=== PATIENT | female | born 1980 | race Caucasian/White ===

== ENCOUNTER 2023-03-23 05:11 | Emergency (ER) | payer OTHER ==
[~2023-03-23] VITALS: Ht 160 cm; Wt 61.2 kg
[2023-03-23] MEDS ORDERED: PROZAC40 MG PO (05:28)
[2023-03-23 06:58] LABS: BILIRUBIN, URINE NEGATIVE (negative); BLOOD/HGB, URINE LARGE (Negative); KETONE, URINE >=80 (Negative); LEUK ESTERASE, URINE SMALL (negative); NITRITE, URINE NEGATIVE (negative); PH, URINE 5.5 (5-7)
[2023-03-23 07:08] LABS: BACTERIA, URINE NONE SEEN /hpf (negative); CASTS, URINE NONE SEEN \\lpf; COLLECTION TYPE, URINE CLEAN CATCH; CRYSTALS, URINE NONE SEEN (0-1+); EPITHELIAL CELLS, URINE SQUAMOUS 1+ /lpf (0-1+); REFLEX CULTURE, URINE Yes (No)
[2023-03-23 07:12] LABS: AMPHETAMINES, URINE POSITIVE (NEGATIVE); BARBITURATES, URINE NEGATIVE (NEGATIVE); BENZODIAZEPINE, URINE NEGATIVE (NEGATIVE); BUPRENORPHINE, URINE NEGATIVE (NEGATIVE); CANNABINOID, URINE POSITIVE (NEGATIVE); COCAINE, URINE NEGATIVE (NEGATIVE); ECSTASY, URINE NEGATIVE (NEGATIVE); FENTANYL, URINE NEGATIVE (NEGATIVE); METHADONE, URINE NEGATIVE (NEGATIVE); OPIATES, URINE NEGATIVE (NEGATIVE); OXYCODONE, URINE NEGATIVE (NEGATIVE); PHENCYCLIDINE, URINE NEGATIVE (NEGATIVE)
[2023-03-23 07:41] LABS: HEMATOCRIT 36.3 % (35.0-50.0); HEMOGLOBIN 12.1 g/dL (12.0-18.0); MCH 30.4 (27-36); MCHC 33.3 g/dl (30-36); MCV 91.5 fl (81-99); PLATELET COUNT 230 K/uL (140-440); RBC 3.96 M/ul (4.3-5.7)
[2023-03-23 08:07] LABS: LYMPHOCYTES, MANUAL DIFF 7; MONOCYTES, MANUAL DIFF 8; NEUTROPHILS, MANUAL DIFF 85
[2023-03-23 08:12] LABS: ACETAMINOPHEN 1 ug/mL (10-30); ALBUMIN 3.4 g/dL (3.4-5.0); ALBUMIN/GLOBULIN RATIO 0.89 (1.1-2.4); ALCOHOL, MEDICAL <3 ng/dL (<3); ALKALINE PHOSPHATASE 63 U/L (46-116); ALT (SGPT) 32 U/L (14-59); ANION GAP 18.9 (7-21); AST (SGOT) 22 U/L (15-37); BILIRUBIN, TOTAL 0.7 ng/dL (0.2-1.0); BUN/CREATININE RATIO 18.18 (6.0-28.6); CALCIUM 8.5 mg/dL (8.5-10.1); CARBON DIOXIDE 27 mmol/L (21-32); CHLORIDE 96 mmol/L (98-107); CREATININE, SERUM 0.77 mg/dL (0.55-1.02); GLOMERULAR FILTRATION RATE,EST 98 mL/min (>60); POTASSIUM 2.9 mmol/L (3.5-5.1); PROTEIN, TOTAL 7.2 g/dL (6.4-8.2); TSH, 3RD GENERATION 0.689 uIU/mL (0.358-3.740); UREA NITROGEN 14 mg/dL (7-18)
[2023-03-24 08:09] LABS: BASOPHILS 0.4 % (0-2); HEMATOCRIT 34.6 % (35.0-50.0); HEMOGLOBIN 11.5 g/dL (12.0-18.0); MCH 30.4 (27-36); MCHC 33.4 g/dl (30-36); MCV 91.2 fl (81-99); MONOCYTES 9.5 % (0-12); NEUTROPHILS 77.1 % (39-80); PLATELET COUNT 242 K/uL (140-440); RBC 3.79 M/ul (4.3-5.7)
[2023-03-24 08:26] LABS: ALBUMIN 2.8 g/dL (3.4-5.0); ALBUMIN/GLOBULIN RATIO 0.72 (1.1-2.4); ANION GAP 13.4 (7-21); BILIRUBIN, TOTAL 0.4 ng/dL (0.2-1.0); BUN/CREATININE RATIO 16.9 (6.0-28.6); CALCIUM 8.5 mg/dL (8.5-10.1); CREATININE, SERUM 0.71 mg/dL (0.55-1.02); POTASSIUM 3.4 mmol/L (3.5-5.1); PROTEIN, TOTAL 6.7 g/dL (6.4-8.2)
[2023-03-25 14:30] VITALS: BP 114/84
[2023-03-25] MEDS ORDERED: CEFDINIR300 MG PO (17:09)
== END 2023-03-25 14:30 | disposition home or self-care (01) ==
LOC: ED 05:11
PROVIDERS: Emergency Medicine
DX: F41.9 Anxiety disorder, unspecified (principal); F32.A Depression, unspecified; F15.10 Other stimulant abuse, uncomplicated; N39.0 Urinary tract infection, site not specified; E87.6 Hypokalemia; D72.829 Elevated white blood cell count, unspecified; S72.121A Displaced fracture of lesser trochanter of right femur, initial encounter for closed fracture; Z88.0 Allergy status to penicillin; Z79.899 Other long term (current) drug therapy; W19.XXXA Unspecified fall, initial encounter
CPT/HCPCS: 36415; 73502; 80053; 80307; 81001; 84443; 84703; 85025; A9270; G0480; J1885

== ENCOUNTER 2024-12-31 03:33 | Emergency (ER) | payer OTHER ==
[~2024-12-31] VITALS: Ht 160 cm; Wt 65.0 kg
[~2024-12-31 03:33] MED LIST: CEFDINIR300 MG PO; PROZAC40 MG PO
--- OUTSIDE RECORDS SUMMARY | 2024-12-31 03:40 | XMS ---
PreManage Notification: KYRA ESCALANTE Security Gsa Coordinator Events No recent Security Events currently on file CRITERIA MET - 6 ED Visits in 6 Months CARE PROVIDERS -, [facility] Dentist: Testing Coordinator Current [employer] PHONE: [phone] [place], [facility]/Center: [facility] ([facility]) PHONE: [phone] CLAUDE SALINAS Nurse Practitioner Current PHONE: Unknown [place] has no Care Guidelines for this patient. E.D. VISIT COUNT (12 MO.) [facility] MELI Diaz [facility] [place] TOTAL 7 NOTE: Visits indicate total known visits. ED/UCC VISIT TRACKING (12 MO.) 12/31/2024 03:34 [place]I [place] TYPE: Emergency COMPLAINT: - SKIN PROBLEM 10/23/2024 02:20 [facility] Ricarda Francisa) TYPE: Emergency DIAGNOSES: - Other symptoms and signs involving cognitive functions and awareness - Altered Mental Status - ams 09/29/2024 06:12 [facility] [place] (Adriana Wright) TYPE: Emergency DIAGNOSES: - Disorder of the skin and subcutaneous tissue, unspecified - Local infection of the skin and subcutaneous tissue, unspecified - Other specified bacterial agents as the cause of diseases classified elsewhere - med check, poss wound check - Rash 09/18/2024 17:55 [facility] [place] (Adriana Wright) TYPE: Emergency DIAGNOSES: - Impetigo, unspecified - Allergic Reaction - Rash 08/13/2024 09:54 [facility] [place] (Adriana Wright) TYPE: Emergency DIAGNOSES: - Hemorrhage, not elsewhere classified - blood in stool 08/12/2024 21:42 [facility] (Adriana Wright) TYPE: Emergency DIAGNOSES: - Strain of muscle, fascia and tendon of lower back, initial encounter - Back Pain - Flank Pain - lower back pain 02/16/2024 15:05 [facility] [place] [facility] DIAGNOSES: - Excoriation (skin-picking) disorder - Local infection of the skin and subcutaneous tissue, unspecified - Skin complaint - infection - Skin Problem INPATIENT VISIT TRACKING (12 MO.) No inpatient visits to display in this time frame [email or web address]
[2024-12-31] MEDS ORDERED: HIBICLENS118 ML TOP (04:07)
[2024-12-31] MEDS ORDERED: KETOCONAZOLE120 ML TOP (04:07)
[2024-12-31] MEDS ORDERED: methylPREDNISolone 4 MG HOME.PACK PO ONE (04:15)
[2024-12-31] MEDS ORDERED: DOXYCYCLINE HYCLATE 100 MG HOME.PACK PO ONE (04:15)
[2024-12-31 05:12] VITALS: BP 135/91
[2024-12-31] MEDS ORDERED: PROZAC20 MG PO (07:46)
== END 2024-12-31 05:15 | disposition home or self-care (01) ==
LOC: ED 03:33
DX: L98.9 Disorder of the skin and subcutaneous tissue, unspecified (principal); Z86.14 Personal history of Methicillin resistant Staphylococcus aureus infection; Z88.0 Allergy status to penicillin; Z79.899 Other long term (current) drug therapy
CPT/HCPCS: 99282; A9270

== ENCOUNTER 2024-12-31 07:28 | Emergency (ER) | payer OTHER ==
[~2024-12-31] VITALS: Ht 160 cm; Wt 54.7 kg
[~2024-12-31 07:28] MED LIST changes: +HIBICLENS118 ML TOP; +KETOCONAZOLE120 ML TOP
--- OUTSIDE RECORDS SUMMARY | 2024-12-31 07:32 | XMS ---
PreManage Notification: KYRA ESCALANTE Security Php Mysql Web Developer Events No recent Security Events currently on file CRITERIA MET - 6 ED Visits in 6 Months - [facility] - 2 Visits in 30 Days CARE PROVIDERS -, [facility] Dentist: Titrator Current [place] PHONE: [phone] [place], [facility]/Center: [facility] ([facility]) PHONE: [phone] CLAUDE SALINAS Nurse Practitioner Current PHONE: Unknown [place] has no Care Guidelines for this patient. E.D. VISIT COUNT (12 MO.) 5 Blayne Bowens [facility] (Adriana Wright) 2 MELI Diaz [facility] Emergency [place] TOTAL 8 NOTE: Visits indicate total known visits. ED/UCC VISIT TRACKING (12 MO.) 12/31/2024 07:28 MELI [place] TYPE: Emergency COMPLAINT: - SKIN PROBLEM 12/31/2024 03:34 MELI Dia TYPE: Emergency COMPLAINT: - SKIN PROBLEM 10/23/2024 02:20 [facility] [place] (Adriana Wright) TYPE: Emergency DIAGNOSES: - Other symptoms and signs involving cognitive functions and awareness - Altered Mental Status - ams 09/29/2024 06:12 [facility] [place] (Adriana Wright) TYPE: Emergency DIAGNOSES: - Disorder of the skin and subcutaneous tissue, unspecified - Local infection of the skin and subcutaneous tissue, unspecified - Other specified bacterial agents as the cause of diseases classified elsewhere - med check, poss wound check - Rash 09/18/2024 17:55 [facility] Adriana VALERIO (Adriana Wright) TYPE: Emergency DIAGNOSES: - Impetigo, unspecified - Allergic Reaction - Rash 08/13/2024 09:[facility] [place] [facility] TYPE: Emergency DIAGNOSES: - Hemorrhage, not elsewhere classified - blood in stool 08/12/2024 21:42 [facility] [place] [facility]ana Wright[facility] TYPE: Emergency DIAGNOSES: - Strain of muscle, fascia and tendon of lower back, initial encounter - Back Pain - Flank Pain - lower back pain 02/16/2024 15:05 [facility] TYPE: Emergency DIAGNOSES: - Excoriation (skin-picking) disorder - Local infection of the skin and subcutaneous tissue, unspecified - Skin complaint - infection - Skin Problem INPATIENT VISIT TRACKING (12 MO.) No inpatient visits to display in this time frame [id number]
[2024-12-31] MEDS ORDERED: PROZAC20 MG PO (07:46)
[2024-12-31 08:52] VITALS: BP 126/82
== END 2024-12-31 08:56 | disposition home or self-care (01) ==
LOC: ED 07:28
DX: F22 Delusional disorders (principal); Z88.0 Allergy status to penicillin; Z79.899 Other long term (current) drug therapy
CPT/HCPCS: 99282